=== PATIENT | female | born 1990 | race Hispanic/Latino ===

== ENCOUNTER 2018-12-06 13:49 | Emergency (ER) | payer OTHER ==
[2018-12-06 14:21] LABS: BASOPHILS % (AUTO) 0.6 % (0.0-5.0); EOSINOPHILS % (AUTO) 0.9 % (0.0-8.0); HEMATOCRIT 37.2 % (36-48); LYMPHOCYTES % (AUTO) 30.7 % (21.0-51.0); MEAN CORPUSCULAR HEMOGLOBIN 29.8 pg (27.0-33.0); MEAN CORPUSCULAR HGB CONC 34.8 g/dL (32.0-36.0); MEAN CORPUSCULAR VOLUME 85.4 fL (79-99); NEUTROPHILS % (AUTO) 62.8 % (40.0-77.0); PLATELET COUNT (AUTO) 266 K/uL (130-400); RED BLOOD CELL COUNT(AUTO) 4.36 MIL/uL (4.00-5.50); RED CELL DISTRIBUTION WIDTH 11.7 % (11.0-15.5); WHITE BLOOD COUNT (AUTO) 8.1 K/uL (4.8-10.8)
[2018-12-06] MEDS ORDERED: IBUPROFEN 400 MG TABLET ONE (14:43)
[2018-12-06] MEDS ORDERED: DICYCLOMINE HCL 20 MG TAB ONE (14:43)
== END 2018-12-06 15:51 | disposition home or self-care (01) ==
LOC: EDH 13:49
DX: N92.1 Excessive and frequent menstruation with irregular cycle (principal); F41.9 Anxiety disorder, unspecified
CPT/HCPCS: 36415; 84702; 85025; 86900; 86901

== ENCOUNTER 2021-07-10 06:02 | Emergency (ER) | payer SELFPAY ==
[~2021-07-10] VITALS: Ht 165.1 cm; Wt 123.4 kg
[2021-07-10 06:35] LABS: APPEARANCE,URINE CLEAR (CLEAR); BILIRUBIN,URINE NEGATIVE (NEGATIVE); COLOR,URINE YELLOW (YELLOW); GLUCOSE, URINE (UA) 250 mg/dL (NEGATIVE); KETONES,URINE NEGATIVE (NEGATIVE); LEUKOCYTE ESTERASE ,URINE NEGATIVE (NEGATIVE); NITRATE,URINE NEGATIVE (NEGATIVE); OCCULT BLOOD,URINE TRACE-LYSED (NEGATIVE); PH,URINE 6.5 (5.0-8.0); PROTEIN,URINE NEGATIVE (NEGATIVE); UROBILINOGEN,URINE 0.2 mg/dL (0.2-1.0)
[2021-07-10 07:32] LABS: BACTERIA,URINE Rare /HPF (None Seen); RBC,URINE 0-1 /HPF (0-1); SQUAMOUS EPITHELIAL CELL,UR Rare /HPF (0-2); WBC,URINE 0-1 /HPF (0-1)
[2021-07-10 07:46] VITALS: BP 96/69
[2021-07-10 07:47] LABS: BASOPHILS % (AUTO) 0.5 % (0.0-5.0); EOSINOPHILS % (AUTO) 1.3 % (0.0-8.0); HEMATOCRIT 38.5 % (36-48); LYMPHOCYTES % (AUTO) 28.7 % (21.0-51.0); MEAN CORPUSCULAR HEMOGLOBIN 29.5 pg (27.0-33.0); MEAN CORPUSCULAR VOLUME 86.7 fL (79-99); MONOCYTES % (AUTO) 6.2 % (3.0-13.0); PLATELET COUNT (AUTO) 259 K/uL (130-400); RED BLOOD CELL COUNT(AUTO) 4.44 MIL/uL (4.00-5.50); RED CELL DISTRIBUTION WIDTH 12.1 % (11.0-15.5); WHITE BLOOD COUNT (AUTO) 11.5 K/uL (4.8-10.8)
[2021-07-10 08:01] LABS: ALBUMIN 3.5 g/dL (3.5-5.0); BILIRUBIN,TOTAL 0.2 mg/dL (0.2-1.0); CREATININE 0.6 mg/dL (0.5-1.5); POTASSIUM 3.9 mmol/L (3.5-5.1); TOTAL PROTEIN, SERUM 7.5 g/dL (6.0-8.3)
[2021-07-10] MEDS ORDERED: METOCLOPRAMIDE 10 MG/2 ML VIAL IVP ONE (08:30)
[2021-07-10] MEDS ORDERED: ONDANSETRON 4MG INJ IVP ONE (08:30)
[2021-07-10] MEDS ORDERED: FAMOTIDINE 20MG VIAL IV ONE (08:30)
[2021-07-10] MEDS ORDERED: PANT40TA PO (08:52)
[2021-07-10] MEDS ORDERED: METO-296 PO (08:52)
[2021-07-10] MEDS ORDERED: ONDA4TAB10 PO (08:52)
== END 2021-07-10 08:59 | disposition home or self-care (01) ==
LOC: EDH 06:02
DX: K29.70 Gastritis, unspecified, without bleeding (principal); E11.9 Type 2 diabetes mellitus without complications; Z79.899 Other long term (current) drug therapy
CPT/HCPCS: 36415; 80053; 81001; 81025; 83690; 85025; 96374; 96375; 99284; J2405; J2765; J3490

== ENCOUNTER 2022-02-21 03:06 | Emergency (ER) | payer OTHER ==
[~2022-02-21] VITALS: Ht 165.1 cm; Wt 129.7 kg
[~2022-02-21 03:06] MED LIST: METO-296 PO; ONDA4TAB10 PO; PANT40TA PO
[2022-02-21 03:27] VITALS: BP 135/68
[2022-02-21 03:28] LABS: APPEARANCE,URINE CLEAR (CLEAR); BILIRUBIN,URINE NEGATIVE (NEGATIVE); COLOR,URINE YELLOW (YELLOW); GLUCOSE, URINE (UA) >=1000 mg/dL (NEGATIVE); KETONES,URINE NEGATIVE (NEGATIVE); LEUKOCYTE ESTERASE ,URINE TRACE (NEGATIVE); NITRATE,URINE NEGATIVE (NEGATIVE); OCCULT BLOOD,URINE MODERATE (NEGATIVE); PH,URINE 5.5 (5.0-8.0); PROTEIN,URINE 100 mg/dL (NEGATIVE); UROBILINOGEN,URINE 0.2 mg/dL (0.2-1.0)
[2022-02-21 03:30] LABS: HCG,QUALITATIVE URINE NEGATIVE (NEGATIVE)
[2022-02-21 03:48] LABS: BACTERIA,URINE Few /HPF (None Seen)
[2022-02-21 03:50] LABS: YEAST,URINE BUDDING Few /HPF (None Seen)
[2022-02-21 03:51] LABS: SQUAMOUS EPITHELIAL CELL,UR Few /HPF (0-2)
[2022-02-21] MEDS ORDERED: CEPHALEXIN 500 MG CAPSULE PO ONE (04:00)
[2022-02-21] MEDS ORDERED: FLUCONAZOLE 100 MG TAB PO ONE (04:00)
[2022-02-21] MEDS ORDERED: METF-444 PO (04:04)
[2022-02-21] MEDS ORDERED: CEPH500B PO (04:04)
== END 2022-02-21 04:17 | disposition home or self-care (01) ==
LOC: EDH 03:06
DX: B37.9 Candidiasis, unspecified (principal); E11.9 Type 2 diabetes mellitus without complications; Z79.84 Long term (current) use of oral hypoglycemic drugs
CPT/HCPCS: 81001; 81025; 87077; 87088; 87186

== ENCOUNTER 2022-05-11 13:11 | Emergency (ER) | payer OTHER ==
[~2022-05-11] VITALS: Ht 162.6 cm; Wt 130.2 kg
[~2022-05-11 13:11] MED LIST changes: +CEPH500B PO; +METF-444 PO
[2022-05-11 13:13] VITALS: BP 152/100
[2022-05-11] MEDS ORDERED: IBUPROFEN 600 MG TABLET PO ONE (14:15)
[2022-05-11] MEDS ORDERED: ACETAMINOPHEN 500 MG TABLET PO ONE (14:15)
[2022-05-11 15:27] LABS: BASOPHILS % (AUTO) 0.3 % (0.0-5.0); EOSINOPHILS % (AUTO) 0.4 % (0.0-8.0); HEMATOCRIT 43.4 % (36-48); LYMPHOCYTES % (AUTO) 15.7 % (21.0-51.0); MEAN CORPUSCULAR HEMOGLOBIN 28.7 pg (27.0-33.0); MEAN CORPUSCULAR HGB CONC 34.1 g/dL (32.0-36.0); MEAN CORPUSCULAR VOLUME 84.1 fL (79-99); NEUTROPHILS % (AUTO) 78.3 % (40.0-77.0); PLATELET COUNT (AUTO) 277 K/uL (130-400); RED BLOOD CELL COUNT(AUTO) 5.16 MIL/uL (4.00-5.50); RED CELL DISTRIBUTION WIDTH 11.7 % (11.0-15.5); WHITE BLOOD COUNT (AUTO) 16.3 K/uL (4.8-10.8)
[2022-05-11 15:28] LABS: BILIRUBIN,URINE NEGATIVE (NEGATIVE); COLOR,URINE YELLOW (YELLOW); GLUCOSE, URINE (UA) 250 mg/dL (NEGATIVE); KETONES,URINE 5 mg/dL (NEGATIVE); LEUKOCYTE ESTERASE ,URINE NEGATIVE Leu/uL (NEGATIVE); NITRATE,URINE NEGATIVE (NEGATIVE); OCCULT BLOOD,URINE MODERATE (NEGATIVE); PROTEIN,URINE 100 mg/dL (NEGATIVE); UROBILINOGEN,URINE 0.2 mg/dL (0.2-1.0)
[2022-05-11 15:29] LABS: APPEARANCE,URINE SLIGHTLY CLOUDY (CLEAR)
[2022-05-11 15:39] LABS: CREATININE 0.7 mg/dL (0.5-1.5); POTASSIUM 3.7 mmol/L (3.5-5.1)
[2022-05-11 15:44] LABS: ALBUMIN 3.7 g/dL (3.5-5.0); TOTAL PROTEIN, SERUM 8.2 g/dL (6.0-8.3)
[2022-05-11 16:09] LABS: BACTERIA,URINE Few /HPF (None Seen); MUCUS,URINE Few LPF (None Seen); SQUAMOUS EPITHELIAL CELL,UR Few /HPF (0-2); YEAST,URINE BUDDING Moderate /HPF (None Seen)
[2022-05-11] MEDS ORDERED: NAPR500T6 PO (17:05)
[2022-05-11] MEDS ORDERED: SULF1TAB42 PO (17:05)
== END 2022-05-11 17:11 | disposition home or self-care (01) ==
LOC: EDH 13:11
DX: L03.312 Cellulitis of back [any part except buttock and flank] (principal); E11.9 Type 2 diabetes mellitus without complications; Z79.84 Long term (current) use of oral hypoglycemic drugs; Z79.899 Other long term (current) drug therapy
CPT/HCPCS: 36415; 71045; 80053; 81001; 83605; 85025; 87040; 87804; 87880